=== PATIENT | male | born 1990 | race Caucasian/White ===

== ENCOUNTER 2024-05-29 07:20 | Day surgery (SDC) | payer OTHER ==
[2024-05-29 07:51] VITALS: TEMP 97
[2024-05-29] MEDS: IV FLUID CONTINUATION 1,000 ML IV ONE (07:57)
[2024-05-29] MEDS: LACTATED RINGERS 1,000 ML IV SCH (07:59)
[2024-05-29] MEDS ORDERED: PROPOFOL 10 MG/ML 20 ML VIAL IV ONE (08:21)
--- NOTE | 2024-05-29 08:48 | P.PCN ---
Date of Procedure: 05/29/24 Procedure(s) Performed: BRIEF HISTORY: Patient is a 31-year-old pleasant white male scheduled for an elective colonoscopy as a part of painful colon cancer and family history of colon cancer. His sister was diagnosed with multiple colon polyps and colon cancer at age 35. PROCEDURE PERFORMED: Colonoscopy. PREOPERATIVE DIAGNOSIS: Screening for colon cancer and family history of colon cancer. IV sedation per Anesthesia. PROCEDURE: After informed consent was obtained, the patient, [facility]. IV sedation was administered by Anesthesia under continuous monitoring. Digital rectal examination was normal. Initially the Olympus CF-160 flexible video colonoscope was then inserted in the rectum, gradually advanced into the cecum without any difficulty. Careful examination was performed as the scope was gradually being withdrawn. Ileocecal valve and the appendiceal orifice were visualized and appeared normal. Prep was excellent. Mucosa of the cecum, ascending colon, transverse colon, descending colon, sigmoid colon, and rectum appeared normal. Retroflexion was performed in the rectum and no lesions were seen. The patient tolerated the procedure well. IMPRESSION: Normal-appearing colon from rectum to cecum as of colorectal neoplasia. RECOMMENDATIONS: Findings of this examination were discussed with the patient as well as his family. He was advised to have repeat screening colonoscopy in 5 years because of the family history of colon cancer.
[2024-05-29 09:09] VITALS: BP 123/85; PULSE 70; RESP 14
== END 2024-05-29 09:25 | disposition home or self-care (01) ==
LOC: ORWHC2ENDO 07:20
PROVIDERS: ATTEND Internal Medicine Gastroenterology
DX: Z12.11 Encounter for screening for malignant neoplasm of colon (principal); F32.A Depression, unspecified; F43.10 Post-traumatic stress disorder, unspecified; F12.90 Cannabis use, unspecified, uncomplicated; Z83.719 Family history of colon polyps, unspecified; Z80.0 Family history of malignant neoplasm of digestive organs; Z79.899 Other long term (current) drug therapy
CPT/HCPCS: 45378; J2704

== ENCOUNTER 2024-09-06 20:13 | Emergency (ER) | payer OTHER ==
--- NOTE | 2024-09-06 21:04 | ED ---
Psych HPI - General Source: patient, RN notes reviewed Mode of arrival: ambulatory <Cary Toledo - Last Filed: 09/07/24 00:39> - General Source: patient, RN notes reviewed Mode of arrival: ambulatory Limitations: no limitations - History of Present Illness MD Complaint: suicidal ideation <John Ray - Last Filed: 09/07/24 22:19> <Yainra Curtis Katie - Last Filed: 09/08/24 14:33> - General Chief Complaint: Psychiatric Symptoms Stated Complaint: mental health Time Seen by Provider: 09/06/24 20:59 - History of Present Illness Initial Comments: 34-year-old male presenting for suicide intent prior to arrival. States he has been dealing with mental health issues including bipolar disorder and depression for about 7 years now. [facility] that he claims do not work. He states he also tries to self medicate with illicit drugs. He states he recently came to a breaking point where he realized his and daughter would be better off without him and decided to commit suicide. States he left home has been [place] for 2 days. States he did cocaine last night and this morning and contemplated overdosing on heroin to end his life however decided a gainst this. He walked to the edge of a [place] [employer] and was going to jump off. He was stopped by a stranger walking by who encouraged him to come to the ER for help. (Cary Toledo) History as described by Cary Toledo PA-C (John Ray) - Related Data Home Medications Medication Instructions Recorded Confirmed Atomoxetine HCl [Strattera] 80 mg PO QAM 05/28/24 09/07/24 Mirtazapine [Remeron] 30 mg PO HS 05/28/24 09/07/24 Multivitamins, Thera [Multivitamin 1 tab PO DAILY 05/28/24 09/07/24 (formulary)] Naltrexone HCl [Revia] 50 mg PO DAILY 05/28/24 09/07/24 Prazosin [Minipress] 10 mg PO HS 05/28/24 09/07/24 QUEtiapine [SEROquel] 50 mg PO HS 05/28/24 09/07/24 Vitamin B Complex 1 tab PO DAILY 05/28/24 09/07/24 Acetaminophen Tab [Tylenol] 975 mg PO TID PRN 09/07/24 09/07/24 Cetirizine HCl [Zyrtec] 10 mg PO DAILY PRN 09/07/24 09/07/24 Ergocalciferol [Vitamin D2 (1250 1,250 mcg PO TH 09/07/24 09/07/24 Mcg = 72995 Iu)] Melatonin 9 mg PO HS 09/07/24 09/07/24 Allergies Allergy/AdvReac Type Severity Reaction Status Date / Time No Known Allergies Allergy Verified 09/07/24 10:04 Review of Systems ROS Other: All systems not noted in ROS Statement are negative. <Cary Toledo - Last Filed: 09/07/24 00:39> ROS Other: All systems not noted in ROS Statement are negative. <John Ray - Last Filed: 09/07/24 22:19> ROS Other: All systems not noted in ROS Statement are negative. <Yanira Curtis - Last Filed: 09/08/24 14:33> ROS Statement: Those systems with pertinent positive or pertinent negative responses have been documented in the HPI. Past Medical History Past Medical History: No Reported History Additional Past Medical History / Comment(s): multiple polyps in sister, possible sleep apnea-has sleep study coming up History of Any Multi-Drug Resistant Organisms: None Reported Additional Past Surgical History / Comment(s): wisdom teeth removed Past Anesthesia/Blood Transfusion Reactions: No Reported Reaction Additional Past Anesthesia/Blood Transfusion Reaction / Comment(s): woke up during teeth removal Past Psychological History: ADD/ADHD, Anxiety, Depression, PTSD Smoking Status: Former smoker Past Alcohol Use History: Heavy Past Drug Use History: Cocaine, Heroin, Opiates <TreCary - Last Filed: 09/07/24 00:39> General Exam Limitations: no limitations General appearance: alert, in no apparent distress Neurological exam: Present: alert, oriented X3 Psychiatric exam: Present: normal affect, normal mood, suicidal ideation, other (Tearful on exam). Absent: homicidal ideation Skin exam: Present: warm, dry, intact, normal color. Absent: rash <ToledoCary - Last Filed: 09/07/24 00:39> General appearance: alert, in no apparent distress Head exam: Present: atraumatic, normocephalic, normal inspection Eye exam: Present: normal appearance, PERRL, EOMI. Absent: scleral icterus, conjunctival injection, periorbital swelling ENT exam: Present: normal exam, mucous membranes moist Neck exam: Present: normal inspection. Absent: tenderness, meningismus, lymphadenopathy Respiratory exam: Present: normal lung sounds bilaterally. Absent: respiratory distress, wheezes, rales, rhonchi, stridor Cardiovascular Exam: Present: regular rate, normal rhythm, normal heart sounds. Absent: systolic murmur, diastolic murmur, rubs, gallop, clicks GI/Abdominal exam: Present: soft, normal bowel sounds. Absent: distended, tenderness, guarding, rebound, rigid Extremities exam: Present: normal inspection, full ROM, normal capillary refill. Absent: tenderness, pedal edema, joint swelling, calf tenderness Back exam: Present: normal inspection Neurological exam: Present: alert, oriented X3, CN II-XII intact Psychiatric exam: Present: normal affect, normal mood Skin exam: Present: warm, dry, intact, normal color. Absent: rash <John Ray - Last Filed: 09/07/24 22:19> Course Vital Signs 09/06/24 09/07/24 09/07/24 20:20 10:00 15:28 Temperature 98.1 F 98.0 F 98.0 F Pulse Rate 95 76 72 Respiratory 17 20 18 Rate Blood Pressure 147/94 130/76 126/78 O2 Sat by Pulse 97 98 99 Oximetry Medical Decision Making <Cary Toledo - Last Filed: 09/07/24 00:39> - Lab Data Result diagrams: 09/07/24 01:36 09/07/24 01:36 <John Ray - Last Filed: 09/07/24 22:19> - Lab Data Result diagrams: 09/07/24 01:36 09/07/24 01:36 <Yanira Curtis - Last Filed: 09/08/24 14:33> - Medical Decision Making Was pt. sent in by a medical professional or institution (MEGHANN Chapin, CERAMIC DESIGN ENGINEER, urgent care, hospital, or retirement...) When possible be specific @ -No Did you speak to anyone other than the patient for history (EMS, parent, family, police, friend...)? What history was obtained from this source @ -No Did you review nursing and triage notes (agree or disagree)? Why? @ -I reviewed and agree with nursing and triage notes Were old charts reviewed (outside hosp., previous admission, EMS record, old EKG, old radiological studies, urgent care reports/EKG's, retirement records)? Report findings @ -No old charts were reviewed Differential Diagnosis (chest pain, altered mental status, abdominal pain women, abdominal pain men, vaginal bleeding, weakness, fever, dyspnea, syncope, headache, dizziness, GI bleed, back pain, seizure, CVA, palpatations, mental health, musculoskeletal)? @ -Differential Mental Health Depression, anxiety, bipolar, psychosis, schizophrenia, borderline personality, situational depression, adjustment disorder, behavioral disorder, brain tumor, malingering, substance abuse, encephalopathy, medication reaction, dementia, hypothyroidism, degenerative neurologic disorder, lupus.... This is not meant to be all-inclusive list EKG interpreted by me (3pts min.). @ -None X-rays interpreted by me (1pt min.). @ -None done CT interpreted by me (1pt min.). @ -None done U/S interpreted by me (1pt. min.). @ -None done What testing was considered but not performed or refused? (CT, X-rays, U/S, labs)? Why? @ -None What meds were considered but not given or refused? Why? @ -None Did you discuss the management of the patient with other professionals (professionals i.e. , PA, CERAMIC DESIGN ENGINEER, lab, RT, psych nurse, adoption social worker, development educator, teacher, water resources technical officer, rn case mgr)? Give summary @ -No Was smoking cessation discussed for >3mins.? @ -No Was critical care preformed (if so, how long)? @ -No Were there social determinants of health that impacted care today? How? (Homeles sness, low income, unemployed, alcoholism, drug addiction, transportation, low edu. Level, literacy, decrease access to med. care, detention, rehab)? @ -No Was there de-escalation of care discussed even if they declined (Discuss DNR or withdrawal of care, Hospice)? DNR status @ -No What co-morbidities impacted this encounter? (DM, HTN, Smoking, COPD, CAD, Cancer, CVA, ARF, Chemo, Hep., AIDS, mental health diagnosis, sleep apnea, morbid obesity)? @ -None Was patient admitted / discharged? Hospital course, mention meds given and route, prescriptions, significant lab abnormalities, going to OR and other pertinent info. @ -This is a 34-year-old male with suicidal intent. Went to the edge of a bridge today intending to jump off however was stopped by a bystander walking by who encouraged him to come to the ER for help. No medical complaints at this time however reports he is very anxious and is requesting something for his anxiety so he does not get agitated and aggressive. Patient was provided with dose of oral Ativan. Urine drug screen positive for cocaine. Patient was medically cleared at this time to be seen by EPS. (Cary Toledo) Patient signed over to John Ray from Cary Toledo [facility]. No change in patient condition prior to transfer. (Cory,John) Was patient admitted / discharged? Hospital course, mention meds given and route, prescriptions, significant lab abnormalities, going to OR and other pertinent info. @ -Patient was evaluated by myself. I did speak with the [facility] about the patient'. They do accept him for transfer. He did require 2 additional doses of Ativan which I did order. His nicotine patch fell off and I did replace this. Patient will be transferred in stable condition to the [facility]. Undiagnosed new problem with uncertain prognosis? @ -No Drug Therapy requiring intensive monitoring for toxicity (Heparin, Nitro, Insulin, Cardizem)? @ -No Were any procedures done? @ -No Diagnosis/symptom? @ -Acute depression, suicidal ideation Acute, or Chronic, or Acute on Chronic? @ -Acute Uncomplicated (without systemic symptoms) or Complicated (systemic symptoms)? @ -Complicated Side effects of treatment? @ -No Exacerbation, Progression, or Severe Exacerbation? @ -No Poses a threat to life or bodily function? How? (Chest pain, USA, NH, pneumonia, PE, COPD, DKA, ARF, appy, cholecystitis, CVA, Diverticulitis, Homicidal, Suicidal, threat to staff... and all critical care pts) @ -Yes as patient is suicidal (Yanira Curtis) - Lab Data Lab Results 09/06/24 09/06/24 09/07/24 Range/Units 21:20 21:20 01:36 WBC 11.0 H (3.8-10.6) k/uL RBC 5.19 (4.30-5.90) m/uL Hgb 15.0 (13.0-17.5) gm/dL Hct 45.2 (39.0-53.0) % MCV 87.1 (80.0-100.0) fL MCH 29.0 (25.0-35.0) pg MCHC 33.2 (31.0-37.0) g/dL RDW 12.8 (11.5-15.5) % Plt Count 218 (150-450) k/uL MPV 7.0 Neutrophils % 58 % Lymphocytes % 28 % Monocytes % 9 % Eosinophils % 2 % Basophils % 1 % Neutrophils # 6.4 (1.3-7.7) k/uL Lymphocytes # 3.1 (1.0-4.8) k/uL Monocytes # 1.0 (0-1.0) k/uL Eosinophils # 0.2 (0-0.7) k/uL Basophils # 0.1 (0-0.2) k/uL Sodium (137-145) mmol/L Potassium (3.5-5.1) mmol/L Chloride (98-107) mmol/L Carbon Dioxide (22-30) mmol/L Anion Gap mmol/L BUN (9-20) mg/dL Creatinine (0.66-1.25) mg/dL Est GFR (CKD-EPI)AfAm (>60 ml/min/1.73 sqM) Est GFR (CKD-EPI)NonAf (>60 ml/min/1.73 sqM) Glucose (74-99) mg/dL Calcium (8.4-10.2) mg/dL Total Bilirubin (0.2-1.3) mg/dL AST (17-59) U/L ALT (4-49) U/L Alkaline Phosphatase (38-126) U/L Total Protein (6.3-8.2) g/dL Albumin (3.5-5.0) g/dL TSH (0.465-4.680) mIU/L Urine Color Light Yellow Urine Appearance Clear (Clear) Urine pH 6.0 (5.0-8.0) Ur Specific [place] 1.015 (1.001-1.035) Urine Protein Negative (Negative) Urine Glucose (UA) Negative (Negative) Urine Ketones Trace H (Negative) Urine Blood Trace H (Negative) Urine Nitrite Negative (Negative) Urine Bilirubin Negative (Negative) Urine Urobilinogen <2.0 (<2.0) mg/dL Ur Leukocyte Esterase Negative (Negative) Urine RBC 1 (0-5) /hpf Urine WBC 1 (0-5) /hpf Urine Mucus Rare H (None) /hpf Urine Opiates Screen Not Detected (NotDetected) Ur Oxycodone Screen Not Detected (NotDetected) Urine Methadone Screen Not Detected (NotDetected) Ur Barbiturates Screen Not Detected (NotDetected) U Tricyclic Antidepress Not Detected (NotDetected) Ur Phencyclidine Scrn Not Detected (NotDetected) Ur Amphetamines Screen Not Detected (NotDetected) U Methamphetamines Scrn Not Detected (NotDetected) U Benzodiazepines Scrn Not Detected (NotDetected) Urine Cocaine Screen Detected H (NotDetected) U Marijuana (THC) Screen Not Detected (NotDetected) Influenza Type A (PCR) (Not Detectd) Influenza Type B (PCR) (Not Detectd) RSV (PCR) (Not Detectd) SARS-CoV-2 (PCR) (Not Detectd) 09/07/24 09/07/24 Range/Units 01:36 01:59 WBC (3.8-10.6) k/uL RBC (4.30-5.90) m/uL Hgb (13.0-17.5) gm/dL Hct (39.0-53.0) % MCV (80.0-100.0) fL MCH (25.0-35.0) pg MCHC (31.0-37.0) g/dL RDW (11.5-15.5) % Plt Count (150-450) k/uL MPV Neutrophils % % Lymphocytes % % Monocytes % % Eosinophils % % Basophils % % Neutrophils # (1.3-7.7) k/uL Lymphocytes # (1.0-4.8) k/uL Monocytes # (0-1.0) k/uL Eosinophils # (0-0.7) k/uL Basophils # (0-0.2) k/uL Sodium 136 L (137-145) mmol/L Potassium 4.5 (3.5-5.1) mmol/L Chloride 100 (98-107) mmol/L Carbon Dioxide 26 (22-30) mmol/L Anion Gap 10 mmol/L BUN 20 (9-20) mg/dL Creatinine 1.09 (0.66-1.25) mg/dL Est GFR (CKD-EPI)AfAm >90 (>60 ml/min/1.73 sqM) Est GFR (CKD-EPI)NonAf 89 (>60 ml/min/1.73 sqM) Glucose 96 (74-99) mg/dL Calcium 9.4 (8.4-10.2) mg/dL Total Bilirubin 0.8 (0.2-1.3) mg/dL AST 31 (17-59) U/L ALT 28 (4-49) U/L Alkaline Phosphatase 59 (38-126) U/L Total Protein 6.9 (6.3-8.2) g/dL Albumin 4.4 (3.5-5.0) g/dL TSH 2.470 (0.465-4.680) mIU/L Urine Color Urine Appearance (Clear) Urine pH (5.0-8.0) Ur Specific [place] (1.001-1.035) Urine Protein (Negative) Urine Glucose (UA) (Negative) Urine Ketones (Negative) Urine Blood (Negative) Urine Nitrite (Negative) Urine Bilirubin (Negative) Urine Urobilinogen (<2.0) mg/dL Ur Leukocyte Esterase (Negative) Urine RBC (0-5) /hpf Urine WBC (0-5) /hpf Urine Mucus (None) /hpf Urine Opiates Screen (NotDetected) Ur Oxycodone Screen (NotDetected) Urine Methadone Screen (NotDetected) Ur Barbiturates Screen (NotDetected) U Tricyclic Antidepress (NotDetected) Ur Phencyclidine Scrn (NotDetected) Ur Amphetamines Screen (NotDetected) U Methamphetamines Scrn (NotDetected) U Benzodiazepines Scrn (NotDetected) Urine Cocaine Screen (NotDetected) U Marijuana (THC) Screen (NotDetected) Influenza Type A (PCR) Not Detected (Not Detectd) Influenza Type B (PCR) Not Detected (Not Detectd) RSV (PCR) Not Detected (Not Detectd) SARS-CoV-2 (PCR) Not Detected (Not Detectd) Disposition <Cary Toledo - Last Filed: 09/07/24 00:39> Is patient prescribed a controlled substance at d/c from ED?: No Time of Disposition: 01:17 - Out of Hospital Transfer - Req. Specs Out of Hospital Transfer - Requested Specifics: Psychiatric Non-ICU <John Ray - Last Filed: 09/07/24 22:19> <Yanira Curtis - Last Filed: 09/08/24 14:33> Clinical Impression: Suicidal ideation Disposition: TRANSFER TO PSYCH HOSP/UNIT Condition: Good Referrals: None,Stated [REFERRING] - 1-2 days
[2024-09-06] MEDS: LORazepam 1 MG TAB PO STA ×2 (21:13→23:11)
[2024-09-06 21:55] LABS: Amphetamine Screen,Urine Not Detected (NotDetected); Barbiturate Screen,Urine Not Detected (NotDetected); Benzodiazepines Screen,Urine Not Detected (NotDetected); Cocaine Screen,Urine Detected (NotDetected); Methadone Screen, Urine Not Detected (NotDetected); Opiate Screen,Urine Not Detected (NotDetected); Oxycodone Screen, Urine Not Detected (NotDetected); Phencyclidine Screen,Urine Not Detected (NotDetected); Tricyclic Antidepressant,Urine Not Detected (NotDetected); Urn Cannabinoid Scrn Not Detected (NotDetected)
[2024-09-07 01:56] LABS: Basophils # (A) 0.1 k/uL (0-0.2); Basophils % (A) 1 %; Eosinophils # (A) 0.2 k/uL (0-0.7); Eosinophils % (A) 2 %; HCT 45.2 % (39.0-53.0); Lymphocytes # (A) 3.1 k/uL (1.0-4.8); Lymphocytes % (A) 28 %; MCHC 33.2 g/dL (31.0-37.0); MCV 87.1 fL (80.0-100.0); Monocytes % (A) 9 %; Neutrophils # (A) 6.4 k/uL (1.3-7.7); Neutrophils % (A) 58 %; Platelet Count 218 k/uL (150-450); RBC 5.19 m/uL (4.30-5.90); RDW 12.8 % (11.5-15.5)
[2024-09-07] MEDS: NICOTINE 14MG/24HR PATCH TRANSDERM STA ×2 (02:01→11:06)
[2024-09-07 02:17] LABS: ALT 28 U/L (4-49); AST 31 U/L (17-59); African American GFR (CKD) >90 (>60 ml/min/1.73 sqM); Albumin 4.4 g/dL (3.5-5.0); Alkaline Phosphatase 59 U/L (38-126); Anion Gap 10 mmol/L; Blood Urea Nitrogen 20 mg/dL (9-20); Calcium 9.4 mg/dL (8.4-10.2); Carbon Dioxide 26 mmol/L (22-30); Chloride 100 mmol/L (98-107); Glucose 96 mg/dL (74-99); Non-African American GFR(CKD) 89 (>60 ml/min/1.73 sqM); Potassium 4.5 mmol/L (3.5-5.1); Sodium 136 mmol/L (137-145); Total Bilirubin 0.8 mg/dL (0.2-1.3); Total Protein 6.9 g/dL (6.3-8.2)
[2024-09-07 02:20] LABS: Appearance,Urine Clear (Clear); Bilirubin,Urine Negative (Negative); Blood,Urine Trace (Negative); Color,Urine Light Yellow; Glucose,Urine (UA) Negative (Negative); Ketones,Urine Trace (Negative); Leukocyte Esterase,Urine Negative (Negative); Mucus,Urine Rare /hpf; Nitrite,Urine Negative (Negative); Protein,Urine Negative (Negative); RBC,Urine 1 /hpf (0-5); Specific Gravity,Urine 1.015 (1.001-1.035); Urobilinogen,Urine <2.0 mg/dL (<2.0); WBC,Urine 1 /hpf (0-5)
[2024-09-07 02:56] LABS: Influenza A Not Detected (Not Detectd); Influenza B Not Detected (Not Detectd); RSV Not Detected (Not Detectd)
[2024-09-07 10:04] VITALS: TEMP 98
[2024-09-07] MEDS: LORazepam 1 MG TAB PO STA ×2 (11:06→15:08)
[2024-09-07] MEDS: NON FORMULARY DRUG (Atomoxetine Hcl [Strattera] 80 MG Capsule) PO SCH (11:30)
[2024-09-07 15:33] VITALS: BP 126/78; PULSE 72; RESP 18
== END 2024-09-07 15:28 ==
LOC: EC 20:13
DX: R45.851 Suicidal ideations (principal); F32.A Depression, unspecified; Z87.891 Personal history of nicotine dependence; Z11.52 Encounter for screening for COVID-19
CPT/HCPCS: 82075; 36415; 80053; 84443; 85025; 81001; 80306; 87636; 99285; S4990

== ENCOUNTER 2025-02-01 15:57 | Emergency (ER) | payer OTHER ==
[2025-02-01] MEDS: KETOROLAC 15 MG/ML 1 ML VIAL IVP STA (16:16)
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
[2025-02-01] MEDS: HYDROmorphone 1 MG/ML 1 ML SYRINGE IVP STA (16:18)
[2025-02-01 16:19] VITALS: RESP 18; TEMP 98.3
--- NOTE | 2025-02-01 16:55 | XR ---
EXAMINATION TYPE: XR ankle complete LT, XR foot complete LT DATE OF EXAM: 02/01/2025 4:49 PM COMPARISON: None. CLINICAL INDICATION: Male, 34 years old with history of fall, TECHNIQUE: XR ankle complete LT, XR foot complete LT, views submitted for evaluation. FINDINGS: There is no evidence for fracture. There appears to be widening of the lateral tibiofibular joint spa ce which could be related to ligamentous injury. Correlate clinically. Tibial plateau is grossly unre markable. Overlying soft tissue appears unremarkable. Ankle mortise is intact. Soft tissues are withi n normal limits. IMPRESSION: 1. There appears to be widening of the lateral tibiofibular joint space which could be related to lig amentous injury. Correlate clinically. Tibial plateau is grossly unremarkable. [facility], , 02/01/2025 4:53 PM
[2025-02-01 18:00] VITALS: BP 156/92; PULSE 76
[2025-02-01] MEDS: DIPH,PERTUS(ACELL)TETVAC-LF 0.5 ML VIAL IM ONE (18:08)
== END 2025-02-01 18:10 | disposition home or self-care (01) ==
LOC: EC 15:57
DX: S93.432A Sprain of tibiofibular ligament of left ankle, initial encounter (principal); Z87.891 Personal history of nicotine dependence; Z23 Encounter for immunization; W01.0XXA Fall on same level from slipping, tripping and stumbling without subsequent striking against object, initial encounter
CPT/HCPCS: 73610; 73630; 90715; 99284; 96374; 96375; 29515; 90471; J1171; J1885